=== PATIENT | female | born 1940 | race Caucasian/White ===

== ENCOUNTER 2016-09-29 11:08 | Inpatient (IN) ==
--- NOTE | 2016-09-29 13:23 | Diag Imaging Result Doc PS360 ---
EXAM: ABDOMEN/PELVIS W/WO CONTRAST HISTORY: RT. LOWER QUAD PAIN TECHNIQUE: CT abdomen and pelvis with and without intravenous contrast. Dose reduction protocol COMPARISON: None. FINDINGS: Noncontrasted exam. No renal stones. No hydronephrosis. Normal aorta. There are prominent inflammatory changes in the right lower quadrant. The appendix is distended. No free air. No abscess. No bowel obstruction. Postcontrast images performed. There is fatty infiltration of the liver. Normal spleen, pancreas, gallbladder, adrenal glands, and kidneys. The urinary bladder is moderately distended. Normal uterus. There is a 1.6 cm left ovarian cyst. IMPRESSION: 1.Acute appendicitis 2.Fatty infiltration of the liver 3.Small left ovarian cyst 4.A preliminary report was given to Dr. Dubon at 1:20 PM Electronically signed by Yousuf Wetzel 09/29/2016 1:21 PM
[2016-09-29] MEDS ORDERED: NS 1,000 ML IV PRN (14:26)
[2016-09-29] MEDS ORDERED: NS 1,000 ML IV SCH ×2 (14:29→19:00)
[2016-09-29] MEDS ORDERED: TYLENOL PO ONE (14:29)
[2016-09-29] MEDS ORDERED: TYLENOL PO PRN ×2 (14:30→21:00)
[2016-09-29] MEDS ORDERED: ZOFRAN IV PRN (14:30)
[2016-09-29] MEDS: ZOSYN 3.375 GM/NS 3.375 GM/50 ML IVPB IV SCH ×2 (14:48→20:09)
[2016-09-29] MEDS ORDERED: DIPRIVAN 1% ONE (15:29)
[2016-09-29] MEDS ORDERED: QUELICIN (DOSE) ONE (15:29)
[2016-09-29] MEDS ORDERED: XYLOCAINE-MPF 2% ONE (15:29)
[2016-09-29] MEDS ORDERED: FENTANYL ONE (15:32)
[2016-09-29 16:14] LABS: MANUAL DIFF NEEDED? NO
[2016-09-29 16:23] LABS: BASO% 0.1 % (0.0-0.8); EOS# 0.01 X1000 (0.0-0.7); EOS% 0.1 % (0.0-10.0); HEMATOCRIT 35.6 % (37.0-47.0); HEMOGLOBIN 12.8 g/dL (12.0-16.0); IMM GRAN# 0.03 X1000 (0.0-0.04); IMM GRAN% 0.2 % (0.0-0.5); LYMPH# 1.61 X1000 (1.2-3.4); MCH 31.5 PG (27-31); MCV 87.7 FL (81-99); MONO% 6.7 % (1.7-9.3); MPV 9.5 FL (7.4-10.4); NEUT% 80.9 % (42.2-75.2); PLT 206 X1000 (130-400); RBC 4.06 XMIL (4.2-5.4)
--- NOTE | 2016-09-29 16:26 | EKG Report ---
Test Performed on : 09/29/2016 3:49:03 PM Test Reason : pre-op Blood Pressure : / mmHG Vent. Rate : 093 BPM Atrial Rate : 093 BPM P-R Int : 160 ms QRS Dur : 078 ms QT Int : 562 ms P-R-T Axes : 033 000 039 degrees QTc Int : 698 ms Normal sinus rhythm. Nonspecific ST abnormality Inferior leads Leftward axis Nonspecific T wave abnormality precordial leads Abnormal ECG No previous ECGs available Confirmed by Elton Mann DO ([id number]) on 09/29/2016 5:26:32 PM
[2016-09-29 16:38] LABS: AGAP 10; BUN 8 mg/dL (8-22); CALCIUM 8.9 mg/dL (8.8-10.2); CHLORIDE 101 mmol/L (98-107); COSMO 277; POTASSIUM 3.7 mmol/L (3.5-5.1); SODIUM 139 mmol/L (136-145); TCO2 28 mmol/L (25-35)
[2016-09-29] MEDS ORDERED: MARCAINE 0.25% PF/EPI 1:200,000 ONE (16:43)
[2016-09-29] MEDS ORDERED: LR 1,000 ML ONE (16:43)
[2016-09-29] MEDS ORDERED: KEFZOL 1 GM/D5W 1 GM/50 ML IVPB ONE (16:46)
[2016-09-29] MEDS ORDERED: SENSORCAINE 0.25%/EPI 1:200,000 ONE (16:55)
[2016-09-29] MEDS ORDERED: NEO-SYNEPHRINE ONE (17:06)
[2016-09-29] MEDS ORDERED: ZOFRAN ONE (17:14)
[2016-09-29] MEDS ORDERED: DECADRON ONE (17:14)
[2016-09-29] MEDS ORDERED: ROBINUL ONE (17:23)
[2016-09-29] MEDS ORDERED: NEOSTIGMINE ONE (17:23)
[2016-09-29] MEDS ORDERED: NORCO-7.5 PO PRN (18:24)
[2016-09-29] MEDS ORDERED: MORPHINE IV PRN (18:24)
--- NOTE | 2016-09-29 19:48 | CONSULTATION ---
HISTORY OF PRESENT ILLNESS: Ms. Madeline Davidson is a 75-year-old white female, patient of Dr. Rip Dubon, who has a 2-day history of abdominal pain which is localized to her right lower quadrant. She was sent over to [facility] today for CT scan of her abdomen and pelvis because of her right lower quadrant pain and it suggests acute appendicitis. We were asked to evaluate her. PAST MEDICAL HISTORY: None. MEDICATIONS: None. ALLERGIES: None. SOCIAL HISTORY: She is retired. Her daughter was at the bedside. She does not smoke. REVIEW OF SYSTEMS: A 14-point review of systems was performed and except for the history of present illness it was essentially negative. PHYSICAL EXAMINATION: GENERAL: Ms Davidson is a healthy appearing 75-year-old white female, no acute distress. She does have right lower quadrant abdominal pain. HEENT: She had no jaundice, no oral lesions. NECK: No cervical or supraclavicular lymphadenopathy. HEART: Has a regular rate. LUNGS: Clear to auscultation and percussion bilaterally. ABDOMEN: Soft. She is tender in the right lower quadrant. There is no palpable mass. No previous abdominal incision. No hernia. She had right costovertebral tenderness. RECTAL/VAGINAL: Exams were not performed. EXTREMITIES: She does have palpable peripheral pulses. No peripheral edema. NEUROLOGIC: She is alert and oriented x3 and appropriate. DIAGNOSTIC DATA: CT scan performed at approximately 1:15 today suggested acute appendicitis. IMPRESSION: Acute appendicitis. PLAN: Laparoscopic, possible open appendectomy this evening. I have discussed the procedure in detail with the patient and her daughter at the bedside. Specifically we discussed the reasoning for appendectomy. We discussed risks of surgery which include bleeding, infection, removal of a normal appendix, conversion of laparoscopic to open appendectomy, leakage from the appendiceal stump requiring reoperation for drainage of infection, possible ruptured appendix requiring prolonged hospitalization and intraabdominal drain. She understands the need for the surgery and its risks and wants to proceed. cc: MD Rip Barrera MD
--- NOTE | 2016-09-29 19:51 | HISTORY AND PHYSICAL ---
CHIEF COMPLAINT: Pain in my side. PRESENT ILLNESS: This is a 75-year-old white female that is normally very healthy. She began having discomfort yesterday morning which has grown in intensity throughout the day and night last evening. She had a temperature with chills of 101 last evening. She states the pain has localized in the right lower quadrant and she points clearly to the right lower quadrant below the umbilicus and above the inguinal ligament. She has no history of appendectomy, hysterectomy, etc. She has had bilateral tubal ligation in years past. She was seen in my office today and subsequently scheduled for CT of the abdomen and pelvis which revealed an acute appendicitis. She is admitted for surgical evaluation. Dr. Jaimes's office has been consulted. PAST SURGICAL HISTORY: She had a tubal ligation in 1974 by . PAST MEDICAL HISTORY: Medical illnesses: No known hypertension, diabetes. No heart problems. She has some degenerative joint disease of her knees, some plantar fasciitis of the left foot. She has had mild hypertension which is nonmedicated. CURRENT MEDICATIONS: Include tramadol 50 mg p.r.n., Flexeril 10 mg p.r.n., meloxicam 15 mg 1 a day with food. ALLERGIES: To no known drugs. REVIEW OF SYSTEMS: Shows that she had a negative colonoscopy in 03/[address] Joaquin. FAMILY HISTORY: Her mother is still living at age 95. She has 2 sisters, 1 with colon cancer. She has 2 brothers, both healthy. She has 1 daughter. PHYSICAL EXAMINATION: GENERAL: Shows a well-developed white female who is in moderate distress due to right lower quadrant pain. VITAL SIGNS: Temperature is 98 degrees, pulse 97, respirations 18, blood pressure 144/74, weight 151 pounds, height 5 feet 2 inches. O2 saturation is 99%. HEENT: TMs are clear. Pupils equally round, reactive. Fundi benign. Nasal mucosa is moist. Oropharynx clear. NECK: Supple. Good carotid pulses. No bruits. LUNGS: Clear. HEART: With a regular rate and rhythm. No murmur or gallop. ABDOMEN: Slightly distended. Tender to palpation in the right lower quadrant. She is tender to percussion in the right lower quadrant. She has positive rebound findings in the right lower quadrant. GENITOURINARY: Shows normal atrophic vaginal mucosa. Bimanual uterus is midline. There is no adnexal masses. RECTAL EXAM: Firm sphincter tone. Stool is heme negative MUSCULOSKELETAL: Neurologically intact with no peripheral edema, clubbing, or cyanosis. LABORATORY DATA: Sodium 140.1, potassium 3.8, chloride 102, CO2 25, BUN 10, creatinine 0.8, glucose 163 nonfasting. Liver enzymes: Alkaline phosphatase 99, AST 19, ALT 15. Amylase 29. Lipase is pending. White blood cell count 12.8 with 86 polys. Urinalysis: Specific gravity 1.20, dark yellow, 1+ ketones, 1-5 white cells, 1+ bacteria. CT scan done emergently at [facility] reveals acute appendicitis. There is no free air. There is a 1.6 cm left ovarian cyst. There is fatty infiltrate of the liver. IMPRESSIONS: 1. A 75-year-old white female now with what appears to be in acute appendicitis/acute abdomen. 2. She is clinically very healthy. 3. She is mildly dehydrated based on her urinalysis. 4. She has a slight left shift on her CBC. PLAN: I do feel that it would be prudent for her to be admitted and consideration for appendectomy. Phone call was made with the surgical associates. Dr. Rodríguez Jaimes is on-call. Information was given to his office personnel. I will admit her and consult him. cc: Rip Dubon MD
--- NOTE | 2016-09-29 20:14 | PROGRESS NOTE ---
DATE: 09/29/2016 CURRENT TIME: 1910 hours. SUBJECTIVE: Postoperative evaluation. The patient underwent laparoscopic cholecystectomy late this afternoon. She is now back in her room following recovery. OBJECTIVE: Vital signs: Temperature is 99.0 degrees, heart rate 81, respirations 16, blood pressure 150/70, O2 saturation is 93% on room air. General: Patient is awake and alert. She is talking. Family is at bedside. Lungs: Clear. Heart: Regular rate and rhythm. Abdomen: Soft but quiet. Wounds are dry. Bandages are in place. Extremities: SCDs are in place but not hooked up at this point. IMPRESSIONS: 1. Status post laparoscopic appendectomy, doing very well. 2. She certainly appears to be hemodynamically stable. 3. She does need her SCDs hooked up and nursing supervisors were instructed of such. PLAN: 1. We will continue current treatment. 2. She will be re-evaluated tomorrow. 3. If condition warrants she will be going home tomorrow. cc: Rip Dubon MD
--- NOTE | 2016-09-29 21:12 | OPERATIVE NOTE ---
PROCEDURE DATE: 09/29/2016 PREOPERATIVE DIAGNOSIS: Acute appendicitis. POSTOPERATIVE DIAGNOSIS: Acute gangrenous appendicitis. PRINCIPAL PROCEDURE: Laparoscopic appendectomy. SURGEON: Maryam Jaimes MD. ANESTHESIA: General, in addition to local anesthetic. ESTIMATED BLOOD LOSS: 25 mL. DRAINS: None. INDICATIONS: Madeline Davidson is a 75-year-old white female, patient of Dr. Rip Dubon who had a 2-day history of abdominal pain which then localized to her right lower quadrant. She underwent a CT scan of her abdomen and pelvis today which suggested acute appendicitis, as did her exam. FINDINGS: Her appendix was acutely inflamed and becoming gangrenous distally, but there was no free purulence noted intra-abdominally and no evidence of abscess. We felt we removed the appendix safely, no other intra-abdominal pathology was noted. We did not leave a drain. DESCRIPTION OF PROCEDURE: The patient was brought to the operating room, placed supine, received general anesthesia, and was intubated. A Cooper catheter tube was placed. Her abdomen was prepped and draped within the sterile field. We did use local anesthetic at our incision sites, and she had received Ancef prophylactically. We made a small incision below the umbilicus with a 15 blade scalpel. A Veress needle was introduced through this incision into the abdomen. Pneumoperitoneum was established. We removed the Veress needle and we used step trocars. I placed an 11 mm step trocar through this incision into the abdomen. The camera was placed through this port, and the abdomen was explored for injury. There was none. Two other trocars were placed under direct vision of the camera. We placed a 12 mm trocar in the suprapubic area midline and also a 5 mm trocar in the right lower quadrant of the abdomen. The camera was at the umbilical port. A grasper and dissector were at the lower ports and we mobilized the appendix off the right pelvic sidewall. I then used an Endo-RAUDEL to come across the base of the appendix and a reload of this 45 mm in length gold load Endo-RAUDEL was used to come across the appendiceal mesentery and I used an endobag to remove the appendix through our 12 mm port site. I placed the port back through this trocar site and the area of operation was thoroughly inspected and the irrigation was removed with suction. We were happy with the appendiceal stump, and there was no evidence of ongoing bleeding and we decided against leaving a drain. All trocars removed under direct vision of the camera. The pneumoperitoneum was allowed to dissipate. I used [id number] 2-0 Vicryl stitches to reapproximate the fascia in our midline incisions. All skin was closed with 4-0 Monocryl subcuticular stitches. Dressings were applied. Plans are to remove her Cooper catheter tube, admit her overnight. cc: MD Rip Barrera MD
[2016-09-30] MEDS: ZOSYN 3.375 GM/NS 3.375 GM/50 ML IVPB IV SCH ×2 (04:02→08:58)
[2016-09-30 08:22] VITALS: BP 116/65
== END 2016-09-30 10:11 | disposition home or self-care (01) ==
LOC: P.CT 11:08 → 4N 14:05
PROVIDERS: ADMIT Family Medicine; ATTEND Family Medicine